=== PATIENT | female | born 1965 | race Caucasian/White ===

== ENCOUNTER 2016-09-26 09:45 | Emergency (ER) | payer OTHER, BC ==
--- NOTE | 2016-09-26 09:51 | PDOC ---
History of Present Illness - General Chief Complaint: Injury Stated Complaint: RIGHT NECK & SHOULDER PAIN Time Seen by Provider: 09/26/16 09:51 Past History - Past Medical History Allergies/Adverse Reactions: Allergies Allergy/AdvReac Type Severity Reaction Status Date / Time codeine Allergy Mild Nausea Verified 09/26/16 09:49 Home Medications: Ambulatory Orders Amlodipine Besylate [Norvasc -] 5 mg PO DAILY 09/26/16 Lisinopril [Prinivil] 20 mg PO DAILY 09/26/16 Naproxen Sodium [Aleve] 220 mg PO ONCE PRN 09/26/16 *DC/Admit/Observation/Transfer - Discharge Dispostion Condition at time of disposition: Good
--- NOTE | 2016-09-26 09:52 | PDOC ---
Attending Attestation - Resident Resident Name: nAdrea Cr - ED Attending Attestation I have performed the following: I have examined & evaluated the patient, The case was reviewed & discussed with the resident, I agree w/resident's findings & plan, Exceptions are as noted - HPI HPI: 51 yo F presents s/p mechanical fall at home. She caught herself with her right arm as she fell, now c/o severe R upper arm pain. She took motrin 600 mg prior to arrival, but still unable to move the arm. No other injuries. No LOC. No head injury. No weakness, numbness. - Physicial Exam PE: GENERAL: Awake, alert, and fully oriented, in no acute distress HEAD: No signs of trauma EXTREMITIES: R proximal humerus with deformity, exquisitely tender to palpation. Dec ROM secondary to pain. Remainder of extremities with normal range of motion, no edema. No clubbing or cyanosis. No cords, erythema, or tenderness NEUROLOGICAL: Cranial nerves II through XII grossly intact. Normal speech, normal gait SKIN: Warm, Dry, normal turgor, no rashes or lesions noted. - Medical Decision Making Case d/w ortho, will place sling for proximal humeral fracture. Stable for DC home, outpatient ortho f/u.
[2016-09-26 09:59] VITALS: BP 157/102; PULSE 109; TEMP 97.6; BMI 30.2
[2016-09-26] MEDS ORDERED: OXYCODONE/APAP 5/325MG COMBO TABLET PO ONE (10:10)
[2016-09-26] MEDS ORDERED: OXYCODONE/APAP 5/325MG COMBO TABLET ONE (10:11)
--- NOTE | 2016-09-26 10:18 | PDOC ---
History of Present Illness - History of Present Illness Initial Comments: 09/26/16 10:09 Ms. Webb is a 51 year old female with a significant past medical history of HTN who presents to the emergency department with an immediate history of fall onto outstretched right shoulder/arm. She came directly to the emergency room and is complaining of acute 10 pain after 600mg motrin PO. The patient denies chest pain, shortness of breath, headache and dizziness. Denies fever, chills, nausea, vomit, diarrhea and constipation. Denies dysuria, frequency, urgency and hematuria. Allergies: Stomach ache to codeine Past surgcal history: Denies Social history: Denies EtOH, approximately 35 pack year smoking history PMD - 09/26/16 10:11 <Andrea Cr - Last Filed: 09/26/16 11:16> <Tonja Duque - Last Filed: 09/26/16 15:06> - General Chief Complaint: Injury Stated Complaint: RIGHT NECK & SHOULDER PAIN Time Seen by Provider: 09/26/16 09:51 Past History - Past Medical History Kidney Stones: Yes Other medical history: RIGHT ELBOW FX WITH NERVE INJURY - Psycho/Social/Smoking Cessation Hx Anxiety: No Suicidal Ideation: No Smoking History: Never smoked Hx Alcohol Use: No Drug/Substance Use Hx: No Substance Use Type: None <Andrea Cr - Last Filed: 09/26/16 11:16> <Tonja Duque - Last Filed: 09/26/16 15:06> - Past Medical History Allergies/Adverse Reactions: Allergies Allergy/AdvReac Type Severity Reaction Status Date / Time codeine Allergy Mild Nausea Verified 09/26/16 09:49 Home Medications: Ambulatory Orders Amlodipine Besylate [Norvasc -] 5 mg PO DAILY 09/26/16 Lisinopril [Prinivil] 20 mg PO DAILY 09/26/16 Naproxen Sodium [Aleve] 220 mg PO ONCE PRN 09/26/16 Oxycodone HCl/Acetaminophen [Percocet 5-325 mg Tablet] 1 tab PO Q4H #20 tablet MDD Max 6 tablets/ day 09/26/16 Review of Systems - Review of Systems Comments:: 09/26/16 10:18 MUSCULOSKELETAL: +Severe shoulder pain reported 12/23 (R) with any movement. 09/26/16 10:21 09/26/16 11:17 <Andrea Cr - Last Filed: 09/26/16 11:16> *Physical Exam - Vital Signs Last Vital Signs Temp Pulse Resp BP Pulse Ox 97.6 F 109 H 16 157/102 96 09/26/16 09:48 09/26/16 09:48 09/26/16 09:48 09/26/16 09:48 09/26/16 09:48 - Physical Exam Comments: 09/26/16 10:22 EXTREMITIES: +(R) shoulder exam limited by movement but sensation / strength intact. No abbrasion noted.. Normal inspection, no edema. No clubbing or cyanosis. 09/26/16 11:17 <Andrea Cr - Last Filed: 09/26/16 11:16> - Vital Signs Last Vital Signs Temp Pulse Resp BP Pulse Ox 97.6 F 109 H 16 157/102 96 09/26/16 09:48 09/26/16 09:48 09/26/16 09:48 09/26/16 09:48 09/26/16 09:48 <Tonja Duque - Last Filed: 09/26/16 15:06> ED Treatment Course - RADIOLOGY Radiology Studies Ordered: Category Date Time Status SHOULDER-RIGHT [RAD] Stat Radiology 09/26/16 10:06 Ordered <Andrea Cr - Last Filed: 09/26/16 11:16> - Medications Given in the ED: ED Medications Discontinued Medications Generic Name Dose Route Start Last Admin Trade Name Freq PRN Reason Stop Dose Admin Oxycodone/Acetaminophen 1 combo 09/26/16 10:10 09/26/16 10:13 Percocet 5/325 - PO 09/26/16 10:11 1 combo ONCE ONE Administration <Tonja Duque - Last Filed: 09/26/16 15:06> Medical Decision Making - Medical Decision Making 09/26/16 10:24 With mechanism and exam suspect shoulder dislocation. Range of motion not discernable due to pain. 4mg Percocet given for pain control with x-ray ordered job for further investigation. 09/26/16 10:58 X-ray showed break at humeral head. Consulted ortho - patient in sling and will f/u thursday <Andrea Cr - Last Filed: 09/26/16 11:16> *DC/Admit/Observation/Transfer - Attestations Physician Attestion: 09/26/16 10:59 I, Dr. Andrea Cr, attest that this document has been prepared under my direction and personally reviewed by me in its entirety. I further attest, that it accurately reflects all work, treatment, procedures and medical decision -making performed by me. <Andrea Cr - Last Filed: 09/26/16 11:16> <Tonja Duque - Last Filed: 09/26/16 15:06> Diagnosis at time of Disposition: Fx humeral neck Qualifiers: Encounter type: initial encounter Fracture type: closed Laterality: unspecified laterality Qualified Code(s): S42.213A - Unspecified displaced fracture of surgical neck of unspecified humerus, initial encounter for closed fracture - Discharge Dispostion Disposition: HOME Condition at time of disposition: Good - Prescriptions Prescriptions: Oxycodone HCl/Acetaminophen [Percocet 5-325 mg Tablet] 1 tab PO Q4H #20 tablet MDD Max 6 tablets/ day - Referrals Referrals: Anshu Hopper [Primary Care Provider] - Bora Isbell MD [Staff Physician] - - Patient Instructions Printed Discharge Instructions: How to Use a Sling, Tips to Help You Stop Smoking, DI for Humeral Fracture Additional Instructions: Please return to ER if worsening of pain or any loss of sensation / strength.
== END 2016-09-26 11:15 | disposition home or self-care (01) ==
LOC: FER 09:45
DX: S42.211A Unspecified displaced fracture of surgical neck of right humerus, initial encounter for closed fracture (principal); W18.30XA Fall on same level, unspecified, initial encounter; Y93.9 Activity, unspecified; Y92.9 Unspecified place or not applicable; I10 Essential (primary) hypertension; Z87.442 Personal history of urinary calculi
CPT/HCPCS: 73030-TC-RT; 99282-25